=== PATIENT | female | born 1990 | race Caucasian/White ===

== ENCOUNTER 2017-09-18 04:10 | Emergency (ER) | payer MEDICAID, OTHER ==
[~2017-09-18] VITALS: Ht 167.6 cm; Wt 135.4 kg
[~2017-09-18 04:10] MED LIST: BAC15O TP; HYDR-565 PO
[2017-09-18] MEDS ORDERED: CLIN-80 PO (04:26)
[2017-09-18 04:31] VITALS: BP 135/84
== END 2017-09-18 04:32 | disposition home or self-care (01) ==
LOC: ER 04:10
DX: K08.89 Other specified disorders of teeth and supporting structures (principal); Z87.891 Personal history of nicotine dependence; Z98.890 Other specified postprocedural states; Z88.0 Allergy status to penicillin; Z88.1 Allergy status to other antibiotic agents
CPT/HCPCS: 99283

== ENCOUNTER 2018-07-25 10:08 | Emergency (ER) | payer MEDICAID ==
[~2018-07-25] VITALS: Ht 167.6 cm; Wt 137.0 kg
[~2018-07-25 10:08] MED LIST changes: +HYDR-4353 PO; -HYDR-565 PO
[2018-07-25 10:22] VITALS: BP 139/78
[2018-07-25] MEDS ORDERED: METH4TAB81 PO (10:38)
== END 2018-07-25 11:13 | disposition home or self-care (01) ==
LOC: ER 10:09
DX: M75.51 Bursitis of right shoulder (principal); Z88.0 Allergy status to penicillin; Z88.1 Allergy status to other antibiotic agents; Z79.899 Other long term (current) drug therapy; Z98.890 Other specified postprocedural states
CPT/HCPCS: 99283

== ENCOUNTER 2018-10-03 03:28 | Emergency (ER) | payer MEDICAID ==
[~2018-10-03] VITALS: Ht 167.6 cm; Wt 137.7 kg
[~2018-10-03 03:28] MED LIST changes: +METH4TAB81 PO
[2018-10-03 03:32] VITALS: BP 148/79
[2018-10-03] MEDS ORDERED: ACET-3067 PO (04:09)
[2018-10-03] MEDS ORDERED: HYDROcodone/acetaminophen 5mg/325mg tablet PO ONE (04:10)
== END 2018-10-03 04:21 | disposition home or self-care (01) ==
LOC: ER 03:29
DX: S93.402A Sprain of unspecified ligament of left ankle, initial encounter (principal); Z88.1 Allergy status to other antibiotic agents; Z88.0 Allergy status to penicillin; Z88.8 Allergy status to other drugs, medicaments and biological substances; W10.9XXA Fall (on) (from) unspecified stairs and steps, initial encounter; Y93.89 Activity, other specified; Y92.89 Other specified places as the place of occurrence of the external cause; Y99.8 Other external cause status
CPT/HCPCS: 73610; 99283

== ENCOUNTER 2019-03-15 19:09 | Emergency (ER) | payer MEDICAID ==
[~2019-03-15] VITALS: Ht 167.6 cm; Wt 146.0 kg
[2019-03-15 19:23] VITALS: BP 157/98
[2019-03-15] MEDS ORDERED: AZIT250T PO (20:50)
[2019-03-15] MEDS ORDERED: ketorolac tromethamine 15mg/ml inj. IM ONE (20:55)
== END 2019-03-15 21:12 | disposition home or self-care (01) ==
LOC: ER 19:10
DX: J20.9 Acute bronchitis, unspecified (principal); M54.5 Low back pain; Z87.891 Personal history of nicotine dependence; Z90.89 Acquired absence of other organs; Z88.1 Allergy status to other antibiotic agents; Z88.0 Allergy status to penicillin; Z88.8 Allergy status to other drugs, medicaments and biological substances; Z79.899 Other long term (current) drug therapy
CPT/HCPCS: 96372; 99283; J1885